=== PATIENT | female | born 1990 | race Caucasian/White ===

== ENCOUNTER 2020-07-12 20:51 | Emergency (ER) | payer OTHER, SELFPAY ==
[2020-07-12 20:58] VITALS: BP 170/114; PULSE 86; RESP 18; TEMP 37; O2SAT 98; BMI 39.1
[2020-07-12 21:03] VITALS: RESP 18
--- NOTE | 2020-07-12 21:55 | W.ED.EXTPRO ---
HPI - Extremity Problem General: Chief complaint: Extremity Problem,Nontraumatic Stated complaint: left foot injury Time Seen by Provider: 07/12/20 21:55 History of Present Illness: HPI Narrative: Patient is a 29-year-old female who comes to the ED with left foot pain. Patient denies any trauma or injury to cause pain pain started tonight as she got out of her vehicle and stepped down onto her left foot. She describes feeling a pain with starts about the midfoot and goes to the heel. She rates the pain a 3 out of 10. She is taken ibuprofen before arriving to ED. Associated symptoms: Deny chest pain, fever(s) or rash Review of Systems Const: Denies: fever(s), chills or fatigue Eyes: Denies: change in vision or eye discomfort ENMT: Denies: throat pain, odynophagia, nasal discharge or nasal congestion Card: Denies: chest pain, palpitations, edema, swelling of feet/ankles, dyspnea on exertion or orthopnea Resp: Denies: dyspnea, productive cough or non-productive cough GI: Denies: abdominal pain, nausea, vomiting, diarrhea, constipation or hematochezia : Denies: flank pain, dysuria or hematuria Musc: Reports: extremity pain (left foot pain); Denies: neck pain, back pain or extremity swelling Skin/Breast: Denies: rash or new lesions Neuro: Denies: headache(s), numbness in extremities or weakness in extremities [facility] ED Female Reproductive History: Date of last menstrual period: 07/01/20 Physical Exam Const: COMMON NORMALS: no acute distress, patient oriented x3 and alert GENERAL APPEARANCE: cooperative and comfortable HENMT: COMMON NORMALS: normocephalic HEAD & SCALP: normocephalic MOUTH: Normal oral and palatal mucosa present THROAT: posterior oropharynx normal and uvula midline Eye: COMMON NORMALS: Equal, round and reactive pupils present PUPIL: Yes Equal, round and reactive pupils present Neck/C-Spine: COMMON NORMALS: supple GENERAL: Yes normal visual inspection Resp: COMMON NORMALS: normal respiratory effort, No retractions, No use of accessory muscles and clear to auscultation bilaterally AUSCULTATION: clear to auscultation bilaterally Cardio: COMMON NORMALS: regular rate, regular rhythm, S1 normal heart sound present, S2 normal heart sound present, No gallops present (Cardio), No clicks present (Cardio), No murmurs present (Cardio) and Peripheral pulses 2+ throughout RATE: regular rate RHYTHM: regular rhythm HEART SOUNDS: S1 normal heart sound present and S2 normal heart sound present PERIPHERAL PULSES: Peripheral pulses 2+ throughout GI: COMMON NORMALS: Normal to inspection, nondistended, normoactive bowel sounds present, Soft to palpation, non-tender and no masses PALPATION: Yes Soft to palpation : COMMON NORMALS: Yes no CVA tenderness BLADDER/KIDNEY EXAM: Yes no CVA tenderness Back/Pelvis: COMMON NORMALS: no CVA tenderness Extremity: COMMON NORMALS: normal to inspection and no pedal edema Neuro: COMMON NORMALS: patient oriented x3 and moves all extremities SENSORIUM/ORIENTATION: Yes alert Skin: COMMON NORMALS: no rashes or lesions noted GENERAL SKIN EXAM: no rashes or lesions noted and dry skin Course Vital Signs: Vital signs: Vital Signs Temperature 98.6 F 07/12/20 20:58 Pulse Rate 86 07/12/20 20:58 Respiratory Rate 18 07/12/20 23:29 Blood Pressure 170/114 07/12/20 20:58 Pulse Oximetry 98 07/12/20 20:58 MDM - Extremity (Nontraumatic) MDM Narrative: Medical decision making narrative: Patient is a 29-year-old female who comes to the ED with left foot pain. She denies any trauma or injury to cause pain. Exam was completely normal and left foot showed no edema or ecchymosis seen. Left foot x-ray showed no acute fractures or findings. Patient diagnosed with left foot pain told to take ibuprofen or Tylenol for pain and to rest, ice and elevate left leg. Patient told to follow-up with PCP in 7 to 10 days for reevaluation. Patient understood and agreed with plan. Imaging Data^: Xray Ortho: Attestation: I personally reviewed and interpreted this imaging study as follows: Radiologist's impression: [address] [address] XRay Report Signed Patient: Francy Morton Unit #: [id number] : 1990 Age/Sex: 29 / F ADM Date: 07/12/20 Loc: ER Room/Bed: Attending Dr: Ordering Provider/Ordering MD: Erasto Yi Date of Service: 07/12/20 Procedure(s): XR foot LT min 3V* [id number] Accession Number(s): [id number] Report Number: [id number] PROCEDURE INFORMATION: Exam: XR Left Foot Complete Exam date and time: 07/12/2020 10:22 PM Age: 29 years old Clinical indication: Pain; Foot; Bilateral; Additional info: Swelling, pain TECHNIQUE: Imaging protocol: XR Left foot. Views: 3 or more views. COMPARISON: No relevant prior studies available. FINDINGS: Bones/joints: The bones are intact and in normal alignment. Soft tissues: Mild dorsal soft tissue swelling. XR/XR foot LT min 3V* [id number] IMPRESSION: No acute skeletal abnormality. Dictated By: Keenan Pop Signed By: Keenan Pop Signed Date/Time: 07/12/202247 DD/ 46 Discharge Plan Discharge Patient Disposition: Home Clinical Impression: Foot pain, left Condition: Stable Prescriptions: No Action Multiple Vitamin, Womens Tablet 1 tab PO BEDTIME RF: 0 Wellbutrin XL 150 mg Tablet Extended Release 24 Hr 150 mg PO QAM RF: 0 biotin 1 tab PO DAILY RF: 0 lysine 1 tab PO DAILY RF: 0 progesterone 10 mg PO Q12D RF: 0 Discharge Orders: Discharge Order (Routine); Ordered 07/12/20 Ordered By: Erasto Yi Referrals: Felicita Willson DO [Primary Care Provider] - Discharge Diet: Regular Discharge Activity: Increase activity as tolerated and Limit activity as instructed Activity Restrictions/Additional Instructions: Follow-up with medical provider as directed in 7-10 days. Rest, ice and elevate left foot. Take ibuprofen for pain.. Return to the ER or your medical provider if condition worsens. Please read and understand discharge instructions. If any questions, please ask. Discharge Date/Time: 07/12/20 23:29 Coding Level of Care Code ED Supervisor [employer] for [facility] Fwd Exam Comprehensive
--- NOTE | 2020-07-12 21:58 | XRR_ITS ---
PROCEDURE INFORMATION: Exam: XR Left Foot Complete Exam date and time: 07/12/2020 10:22 PM Age: 29 years old Clinical indication: Pain; Foot; Bilateral; Additional info: Swelling, pain TECHNIQUE: Imaging protocol: XR Left foot. Views: 3 or more views. COMPARISON: No relevant prior studies available. FINDINGS: Bones/joints: The bones are intact and in normal alignment. Soft tissues: Mild dorsal soft tissue swelling. XR/XR foot LT min 3V* [id number] IMPRESSION: No acute skeletal abnormality.
[2020-07-12] MEDS: acetaminophen 500 mg Tablet 1000 MG PO (22:22)
[2020-07-12 23:03] VITALS: RESP 18
[2020-07-12 23:29] VITALS: RESP 18
== END 2020-07-12 23:29 | disposition home or self-care (01) ==
PROVIDERS: Emergency Provider Physician Assistant; PCP Family Medicine
DX: M79.672 Pain in left foot (principal)
CPT/HCPCS: 12345; 73630; 99281; 99283